=== PATIENT | male | born 1955 ===

== ENCOUNTER → 2019-10-19 | Day surgery (SDC) | payer MEDICARE ==
[~2019-10-19] VITALS: Ht 154.9 cm; Wt 53.5 kg
[~2019-10-19] MED LIST: ADV 500/50 INH; ADVAIR HFA 230-12 GM INH; ASPIRIN81 M1 PO; CLOPIDOGREL75 MG PO; FLONASE ALLERG9.9 ML NAS; LISINOPRIL2.5 MG PO; METFORMIN HYD1000 MG PO; METOPROLOL SUCC50 M1 PO; NITROGLYCERIN0.4 MG SL; Ocuflox 0.3% 5 M5 ML OS; PRAVASTATIN SOD80 MG PO; PRED FORTE5 ML OS; PROVENTIL HFA6.7 GM INH; TAGAMET HB200 M1 PO; VENT7GM INH
[2019-10-19 11:44] VITALS: BP 114/62
[2019-10-19 12:47] VITALS: BP 101/64
== END | disposition home or self-care (01) ==
LOC: SDC 10-13 11:00
DX: H25.811 Combined forms of age-related cataract, right eye (principal); J44.9 Chronic obstructive pulmonary disease, unspecified; I25.10 Atherosclerotic heart disease of native coronary artery without angina pectoris; E78.5 Hyperlipidemia, unspecified; I25.2 Old myocardial infarction; Z98.890 Other specified postprocedural states; Z79.899 Other long term (current) drug therapy

== ENCOUNTER → 2019-10-26 | Day surgery (SDC) | payer MEDICARE ==
[~2019-10-26] VITALS: Ht 154.9 cm; Wt 53.5 kg
[2019-10-26 07:20] VITALS: BP 136/64
[2019-10-26 09:17] VITALS: BP 112/63
[2019-10-26 09:31] VITALS: BP 99/72
[2019-10-26 09:45] VITALS: BP 101/63
== END | disposition home or self-care (01) ==
LOC: SDC 10-24 14:45
DX: H25.812 Combined forms of age-related cataract, left eye (principal); I25.10 Atherosclerotic heart disease of native coronary artery without angina pectoris; J44.9 Chronic obstructive pulmonary disease, unspecified; I25.2 Old myocardial infarction; Z88.8 Allergy status to other drugs, medicaments and biological substances; Z79.899 Other long term (current) drug therapy

== ENCOUNTER → 2021-04-02 | Outpatient (CLI) | payer MEDICARE | END | disposition home or self-care (01) | LOC: CARD 14:06 | PROVIDERS: ATTEND Registered Nurse | DX: I51.9 Heart disease, unspecified (principal) ==